=== PATIENT | male | born 1985 | race Two or more races ===

== ENCOUNTER 2025-03-12 21:44 | Emergency (ER) | payer OTHER ==
[~2025-03-12] VITALS: Ht 165.1 cm; Wt 83.1 kg
[2025-03-12 21:46] VITALS: BP 122/70; PULSE 70; RESP 14; TEMP 98.2; O2SAT 99
--- NOTE | 2025-03-12 23:15 | ED.PDOC ---
History of Present Illness HPI Comments 39 y/o obese M presents with c/c of left upper back rash. Patient reports of scratching his back at work 1x week ago with a metal brush by accident. He comments on developing a rash since then, which has been, gradually, spreading. Patient also reports on having associated generalized body aches and chills. Denies any fever or further acute symptoms. Chief Complaint: Wound Check Time Seen by MD: 22:01 Reviewed Notes: Nurses Notes, Medications, Allergies Allergies: Coded Allergies: No Known Drug Allergy (Verified Allergy, Unknown, 03/12/25) Information Source: Patient Mode of Arrival: Ambulatory Severity: Moderate Timing: Hours Duration: Since onset Prehospital treatment: None Past Medical History PAST MEDICAL HISTORY: Denies Surgical History: Denies all surgeries Family History Family History: Unknown Social History Smoker: Non-Smoker Alcohol: Denies ETOH Use Drugs: Denies Drug Use Lives In: Home All Other Systems: Reviewed and Negative (As per HPI) Physical Exam General Appearance: No Apparent Distress, Obese HEENT: Normal ENT Inspection, Pharynx Normal, TMs Normal Neck: Full Range of Motion, Non-Tender, Normal, Normal Inspection Respiratory: Chest Non-Tender, Lungs Clear, No Accessory Muscle Use, No Respiratory Distress, Normal Breath Sounds Cardiovascular: No Edema, No JVD, No Murmur, No Gallop, Normal Peripheral Pulses, Regular Rate/Rhythm Breast Exam: Deferred Gastrointestinal: No Organomegaly, Non Tender, No Pulsatile Mass, Normal Bowel Sounds, Soft Genitalia: Deferred Pelvic: Deferred Rectal: Deferred Extremities: No calf tenderness, Normal capillary refill, Normal inspection, Normal range of motion, Non-tender, No pedal edema Musculoskeletal : Apperance: Normal Neurologic: Alert, consulting services associate II-XII nml as Tested, No Motor Deficits, Normal Affect, Normal Mood, No Sensory Deficits Cerebellar Function: Normal Reflexes: Normal Skin: Dry, Normal Color, Warm Lymphatic: No Adenopathy Was a procedure done? Was a procedure done?: No Differential Dx Considerations may include: urticaria, unhealing wound, contact dermatitis, cellulitis, among others X-Ray, Labs, Meds, VS Vital Signs Date Time Temp Pulse Resp B/P (MAP) Pulse Ox O2 Delivery O2 Flow Rate FiO2 03/12/25 21:46 98.2 70 14 122/70 99 98.2 Reevaluation 1ST: Unchanged Patient Education/Counseling: Diagnosis, Treatment, Need For Follow Up SEPSIS Sepsis Screen Date sepsis recognized/suspect: Mar 12, 2025 Time Sepsis recognized/suspect: 2147 Recent Procedure: No On Antibiotic Therapy: No Respiratory Rate >20: No Heart Rate >90: No Temp<36 C (96.8 F) or >38.3 C: No SBP <90 or MAP <65 mmHG: No New Acute Mental Status Change: No Is the patient on CPAP, BIPAP,: No Vital Signs Date Time Temp Pulse Resp B/P (MAP) Pulse Ox O2 Delivery O2 Flow Rate FiO2 03/12/25 21:46 98.2 70 14 122/70 99 98.2 Critical Care Note Critical Care Time?: No Stability Stability form required: No Heart Score Heart Score: Heart Score Response (Comments) Value History N/A 0 EKG N/A 0 Age N/A 0 Risk Factors N/A 0 Troponin N/A 0 Total 0 I personally scribed for ER ([email or web address]) on 03/12/25 at 23:15. Electronically submitted by Luis Manuel Greenfield ([email or web address]). ER Mar 12, 2025 23:15 NANCY ARCOS PICKER MACHINE OPERATOR Mar 13, 2025 00:30
== END 2025-03-13 00:30 | disposition left against medical advice (07) ==
LOC: ER 21:44
DX: R21 Rash and other nonspecific skin eruption (principal); M79.10 Myalgia, unspecified site; Z79.899 Other long term (current) drug therapy

== ENCOUNTER 2025-03-25 07:58 | Emergency (ER) | payer OTHER ==
[~2025-03-25] VITALS: Ht 170.2 cm; Wt 85.5 kg
[2025-03-25 08:26] VITALS: BP 138/87; PULSE 81; RESP 16; TEMP 97.7
--- NOTE | 2025-03-25 08:26 | ED.PDOC ---
Kendell. trauma (HPI) HPI Comments 39 y.o male presents to the ED for a chief complaint of a generalized headache associated with right sided shoulder and wrist pain s/p fall x 2 days ago. Patient reports falling off a 7-10ft roof, landed on his right side and when getting himself up, lost consciousness twice. He did not seek medical attention then but states persistent pain prompt him to come in today. He presents with a wrist brace which he bought given increased pain with movement and/or twisting. Chief Complaint: Headache Time Seen by MD: 08:20 Reviewed notes: Nurses Notes, Medications, Allergies Allergies: Coded Allergies: No Known Drug Allergy (Verified Allergy, Unknown, 03/12/25) Penicillins (Verified Allergy, Unknown, 03/25/25) Information Source: Patient Mode of Arrival: Ambulatory Severity: Moderate Timing: Days (2) Duration: Since onset Location: Head, (R) Shoulder, (R) Wrist Location of laceration: None Mechanism: Fall Associated signs and symtoms: Headache Past Medical History PAST MEDICAL HISTORY: Denies Surgical History: Denies all surgeries Family History Family History: Unknown Social History Smoker: Non-Smoker Alcohol: Denies ETOH Use Drugs: Denies Drug Use Lives In: Home Constitutional: denies: chills, diaphoresis, fatigue, fever, malaise, sweats, weakness, others EENTM: denies: blurred vision, double vision, ear bleeding, ear discharge, ear drainage, ear pain, ear ringing, eye pain, eye redness, hearing loss, mouth pain, mouth swelling, nasal discharge, nose bleeding, nose congestion, nose pain, photophobia, tearing, throat pain, throat swelling, voice changes, others Respiratory: denies: cough, hemoptysis, orthopnea, SOB at rest, shortness of breath, SOB with excertion, stridor, wheezing, others Cardiovascular: reports: syncope; denies: chest pain, dizzy spells, diaphoresis, Dyspnea on exertion, edema, irregular heart beat, left arm pain, lightheadedness, palpitations, PND, others Gastrointestinal: denies: abdomen distended, abdominal pain, blood streaked bowels, constipated, diarrhea, dysphagia, difficulty swallowing, hematemesis, melena, nausea, poor appetite, poor fluid intake, rectal bleeding, rectal pain, vomiting, others Genitourinary: denies: burning, dysuria, flank pain, frequency, hematuria, incontinence, penile discharge, penile sore, pain, testicle pain, testicle swelling, urgency, others Neurological: reports: fainting, headache; denies: dizziness, left sided numbness, left sided weakness, numbness, paresthesia, pre-existing deficit, right sided numbness, right sided weakness, seizure, speech problems, tingling, tremors, weakness, others Musculoskeletal: reports: others (right shoulder and wrist pain ); denies: back pain, gout, joint pain, joint swelling, muscle pain, muscle stiffness, neck pain Integumetry: reports: bruises; denies: change in color, change in hair/nails, dryness, laceration, lesions, lumps, rash, wounds, others Allergic/Immunocompromised: denies: Difficulty Healing, Frequent Infections, Hi ves, Itching, others Hematologic/Lymphatic: denies: anemia, blood clots, easy bleeding, easy bruising, swollen glands, others Endocrine: denies: excessive hunger, excessive sweating, excessive thirst, excessive urination, flushing, intolerance to cold, intolerance to heat, unexplained weight gain, unexplained weight loss, others Psychiatric: denies: anxiety, bipolar disorder, depression, hopeless, panic disorder, schizophrenia, sleepless, suicidal, others All Other Systems: Reviewed and Negative Physical Exam General Appearance: Moderate Distress HEENT: Normal ENT Inspection, Pharynx Normal, TMs Normal Neck: Full Range of Motion, Non-Tender, Normal, Normal Inspection Respiratory: Chest Non-Tender, Lungs Clear, No Accessory Muscle Use, No Respiratory Distress, Normal Breath Sounds Cardiovascular: No Edema, No JVD, No Murmur, No Gallop, Normal Peripheral Pulses, Regular Rate/Rhythm Breast Exam: Deferred Gastrointestinal: No Organomegaly, Non Tender, No Pulsatile Mass, Normal Bowel Sounds, Soft Genitalia: Deferred Pelvic: Deferred Rectal: Deferred Extremities: No calf tenderness, Normal capillary refill, Normal inspection, Normal range of motion, Non-tender, No pedal edema Musculoskeletal : Apperance: Normal Neurologic: Alert, microfilm equipment inspector II-XII nml as Tested, No Motor Deficits, Normal Affect, Normal Mood, No Sensory Deficits Cerebellar Function: Normal Reflexes: Normal Skin: Dry, Normal Color, Warm Peripheral Pulses: 3+ Radial (R), 3+ Radial (L) Lymphatic: No Adenopathy Was a procedure done? Was a procedure done?: No Differential Diagnosis Multiple Trauma: Closed Head Injury, Fractures, Abrasions, Contusion, Hematoma X-Ray, Labs, Meds, VS Vital Signs Date Time Temp Pulse Resp B/P (MAP) Pulse Ox O2 Delivery O2 Flow Rate FiO2 03/25/25 08:27 97 Room Air* 0 21 03/25/25 08:26 97.7 81 16 138/87 (104) 97 97.7 03/25/25 07:59 98.9 70 16 136/85 98 98.9 Patient alert. Came in because of fall. Vitals stable. Answering questions. Saturation pristine on room air. Heart rate within normal limits. Blood pressure within normal limits. Moving all extremities. Has been having on and off headaches. CT of the head reviewed does not show any acute changes. Has a fracture of the right wrist. He is wearing wrist brace. Has good pulses. Had fell few days ago. Has not not been seen by anyone prior. Good skin color. Explained to the patient. Was told to follow up with his primary care physician. Was told to come back if there is any problem. Time of 1ST Reevaluation: 08:23 Reevaluation 1ST: Unchanged Patient Education/Counseling: Diagnosis, Treatment, Prognosis Family Education/Counseling: No Family Present Departure 1 Departure Time of Disposition: 09:13 Impression: Primary Impression: Head injury Qualified Codes: S09.90XA - Unspecified injury of head, initial encounter Additional Impressions: Musculoskeletal pain Wrist fracture Qualified Codes: S62.101S - Fracture of unspecified carpal bone, right wrist, sequela Disposition: 01 HOME / SELF CARE / HOMELESS Condition: Good Discharged With: Self Critical Care Note Critical Care Time?: No Stability Stability form required: No I personally scribed for AYUSH BARNARD MD ([email or web address]) on 03/25/25 at 08:26. Electronically submitted by Barbara Gibson ([facility]). AYUSH BARNARD MD Mar 25, 2025 08:26
[2025-03-25 08:27] VITALS: O2SAT 97
--- NOTE | 2025-03-25 09:05 | DVH ---
CLINICAL HISTORY: fall TECHNIQUE: Helical imaging carried out from skull base to vertex without intravenous contrast. This exam was performed according to our departmental dose optimization program. Up-to-date CT equipment and radiation dose reduction techniques are utilized as appropriate. CTDIVol: 58.89 mGy DLP: 1160.45 mGy-cm WID: COMPARISON: None FINDINGS: The ventricles and subarachnoid spaces are normal in size and configuration. There is no midline shift or mass effect. The verdin white matter interfaces are maintained. The basal cisterns are patent. There is no evidence of acute intracranial hemorrhage or extra-axial fluid collection. The mastoid air cells and visualized paranasal sinuses are well-aerated aside from mucous retention cysts or polyps in the bilateral maxillary sinuses IMPRESSION: 1. No acute intracranial abnormality.
--- NOTE | 2025-03-25 09:06 | DVH ---
CLINICAL INDICATION: fall TECHNIQUE: XY PELVIS AP Comparison: None FINDINGS/IMPRESSION: : There is no evidence of acute fracture or dislocation. Soft tissues are unremarkable.
--- NOTE | 2025-03-25 09:07 | DVH ---
CLINICAL INDICATION: fall TECHNIQUE: XY R SHOULDER 1V XRAY Comparison: None FINDINGS/IMPRESSION: : There is no evidence of acute fracture or dislocation on single projection. Soft tissues are unremarkable. Visualized right lung is clear.
--- NOTE | 2025-03-25 09:07 | DVH ---
CLINICAL HISTORY: fall TECHNIQUE: 2 views of the right wrist were obtained. WID: COMPARISON: None FINDINGS: Normal mineralization alignment. Joint spaces are preserved. There is a fracture fragment projecting posteriorly at the level of the right wrist on lateral projection. Mild soft tissue swelling of the dorsum of the right wrist. IMPRESSION: 1. Small fracture fragment of indeterminate chronicity projecting posteriorly at the level of the right wrist which could reflect a triquetral fracture.
== END 2025-03-25 09:26 | disposition home or self-care (01) ==
LOC: ER 07:58
DX: S62.101A Fracture of unspecified carpal bone, right wrist, initial encounter for closed fracture (principal); S09.8XXA Other specified injuries of head, initial encounter; R07.89 Other chest pain; Z88.0 Allergy status to penicillin; W19.XXXA Unspecified fall, initial encounter; Y93.89 Activity, other specified; Y92.89 Other specified places as the place of occurrence of the external cause; Y99.8 Other external cause status
CPT/HCPCS: 70450; 72170; 73020; 73100